=== PATIENT | female | born 1975 | race Hispanic/Latino ===

== ENCOUNTER 2018-11-18 13:38 | Emergency (ER) | payer OTHER ==
[2018-11-18] MEDS ORDERED: KETOROLAC TROMETHAMINE 60 MG/2 ML VIAL ONE (14:27)
[2018-11-18] MEDS ORDERED: DEXAMETHASONE SOD PHOSPHATE 10MG/ML 1ML VIAL ONE (14:27)
== END 2018-11-18 14:52 | disposition home or self-care (01) ==
LOC: EDH 13:38
DX: M54.5 Low back pain (principal)
CPT/HCPCS: 96372 ×2; 99283; J1100; J1885